=== PATIENT | female | born 1990 | race Hispanic/Latino ===

== ENCOUNTER 2017-11-25 10:30 | Observation (INO) | payer MEDICAID ==
[~2017-11-25] VITALS: Ht 160 cm; Wt 111.3 kg
[2017-11-25 11:43] VITALS: BP 114/74
[2017-11-25 11:49] LABS: BASOPHILS % (AUTO) 0.6 % (0.0-5.0); EOSINOPHILS % (AUTO) 0.5 % (0.0-8.0); HEMATOCRIT 31.6 % (36-48); LYMPHOCYTES % (AUTO) 26.3 % (21.0-51.0); MEAN CORPUSCULAR HEMOGLOBIN 21.9 pg (27.0-33.0); MEAN CORPUSCULAR HGB CONC 31.5 g/dL (32.0-36.0); MEAN CORPUSCULAR VOLUME 69.6 fL (79-99); MONOCYTES % (AUTO) 7.6 % (3.0-13.0); PLATELET COUNT (AUTO) 402 K/uL (130-400); RED BLOOD CELL COUNT(AUTO) 4.54 MIL/uL (4.00-5.50); RED CELL DISTRIBUTION WIDTH 22.3 % (11.0-15.5)
[2017-11-25] MEDS ORDERED: IRON PO (12:04)
[2017-11-25 12:11] LABS: CREATININE 0.9 mg/dL (0.5-1.5); POTASSIUM 4.1 mmol/L (3.5-5.1)
[2017-11-25] MEDS ORDERED: CEFAZOLIN 3GM /D5W 100ML 100 ML IV SCH (14:30)
[2017-11-25] MEDS ORDERED: LACTATED RINGERS 1000ML 1,000 ML IV SCH (14:30)
[2017-11-26] VITALS (21 sets, daily range): BP systolic 116–139; BP diastolic 62–91
[2017-11-26] MEDS: CEFAZOLIN SODIUM 1 GM VIAL ONE ×2 (06:16→07:50)
[2017-11-26] MEDS ORDERED: DEXAMETHASONE SOD PHOSPHATE 10MG/ML 1ML VIAL ONE (07:45)
[2017-11-26] MEDS ORDERED: ONDANSETRON HCL 4 MG/2 ML VIAL ONE ×2 (07:45→11:02)
[2017-11-26] MEDS ORDERED: SUCCINYLCHOLINE 200MG/10ML SYR ONE (07:45)
[2017-11-26] MEDS ORDERED: LIDOCAINE PF 2% 5ML ABBOJECT ONE (07:45)
[2017-11-26] MEDS ORDERED: GLYCOPYRROLATE 0.2 MG/ML 5 ML VIAL ONE (07:45)
[2017-11-26] MEDS ORDERED: MIDAZOLAM HCL 1 MG/ML 2ML VIAL ONE (07:46)
[2017-11-26] MEDS ORDERED: PROPOFOL 10 MG/ML 20ML VIAL IV ONE ×2 (07:46→09:29)
[2017-11-26] MEDS ORDERED: ROCURONIUM BROMIDE 10MG/1ML 5ML VL ONE (07:47)
[2017-11-26] MEDS ORDERED: FENTANYL CITRATE PF 50 MCG/1 ML 2ML VIAL ONE (07:52)
[2017-11-26] MEDS ORDERED: FENTANYL CITRATE PF 50 MCG/1 ML 5ML AMP IV ONE (08:42)
[2017-11-26] MEDS ORDERED: MORPHINE SULFATE 10 MG/ML 1ML SYG ONE (09:43)
[2017-11-26] MEDS ORDERED: MEPERIDINE-PF 50 MG/ML SYG ONE ×2 (10:02→10:28)
[2017-11-26] MEDS ORDERED: PROMETHAZINE HCL 25 MG/ML 1ML AMPULE IM ONE (10:29)
[2017-11-26] MEDS ORDERED: SIMETHICONE 80 MG TAB.CHEW PO PRN (11:45)
[2017-11-26] MEDS ORDERED: BISACODYL 10 MG SUPP.RECT RC PRN (11:45)
[2017-11-26] MEDS ORDERED: PROMETHAZINE HCL 25 MG/ML 1ML AMPULE IM PRN ×2 (11:45)
[2017-11-26] MEDS ORDERED: MEPERIDINE-PF 75 MG/ML SYG IM PRN (11:45)
[2017-11-26] MEDS: ACETAMINOPHEN-CODEINE 300/30MG TAB PO PRN (17:00)
[2017-11-26] MEDS: IBUPROFEN 600 MG TABLET PO PRN (18:53)
[2017-11-26] MEDS: DEXTROSE 5 %-0.45 % NACL 1,000 ML IV PRN (18:53)
[2017-11-26] MEDS: DOCUSATE SODIUM 100 MG CAP PO PRN (21:03)
[2017-11-27] MEDS: DEXTROSE 5 %-0.45 % NACL 1,000 ML IV PRN (03:20)
[2017-11-27 03:29] VITALS: BP 96/57
[2017-11-27 05:58] LABS: HEMATOCRIT 28.9 % (36-48); MEAN CORPUSCULAR HEMOGLOBIN 21.5 pg (27.0-33.0); MEAN CORPUSCULAR HGB CONC 29.4 g/dL (32.0-36.0); MEAN CORPUSCULAR VOLUME 73.1 fL (79-99); NUCLEATED RED BLOOD CELLS 0.1 % (0.0-0.19); PLATELET COUNT (AUTO) 355 K/uL (130-400); RED BLOOD CELL COUNT(AUTO) 3.95 MIL/uL (4.00-5.50); RED CELL DISTRIBUTION WIDTH 21.3 % (11.0-15.5); WHITE BLOOD COUNT (AUTO) 14.4 K/uL (4.8-10.8)
[2017-11-27] MEDS: ACETAMINOPHEN-CODEINE 300/30MG TAB PO PRN (05:59)
[2017-11-27 07:33] VITALS: BP 113/56
[2017-11-27] MEDS: IBUPROFEN 600 MG TABLET PO PRN (09:01)
[2017-11-27] MEDS: DOCUSATE SODIUM 100 MG CAP PO PRN (09:01)
[2017-11-27 11:18] VITALS: BP 134/82
== END 2017-11-27 14:50 | disposition home or self-care (01) ==
LOC: EDSTATUS 11:30 → DAHIP 11-26 05:33 → WSH 11-26 11:20
PROVIDERS: ADMIT Obstetrics & Gynecology; ATTEND Obstetrics & Gynecology
DX: N92.1 Excessive and frequent menstruation with irregular cycle (principal); N85.2 Hypertrophy of uterus; K66.0 Peritoneal adhesions (postprocedural) (postinfection); N83.291 Other ovarian cyst, right side; D50.0 Iron deficiency anemia secondary to blood loss (chronic); Z82.49 Family history of ischemic heart disease and other diseases of the circulatory system; Z80.8 Family history of malignant neoplasm of other organs or systems; Z83.3 Family history of diabetes mellitus; Z79.899 Other long term (current) drug therapy; Z90.710 Acquired absence of both cervix and uterus
CPT/HCPCS: 36415 ×2; 58552; 80048; 85025; 85027; 86850; 86900; 86901; 88307; 96372; A4215; A4218; A4351; A4510; A4600; A4649 ×4; C1769 ×2; G0378 ×34; J0330; J0690 ×2; J1100; J2001; J2175 ×3; J2250; J2270; J2405 ×2; J2550 ×2; J2704 ×2; J3010 ×2; J3490 ×2; J7030; J7120